=== PATIENT | male | born 1965 | race Caucasian/White ===

== ENCOUNTER 2016-06-13 10:27 | Emergency (ER) | payer OTHER ==
[2016-06-13 11:09] LABS: BILIRUBIN NEGATIVE (NEGATIVE); BLOOD NEGATIVE Ery/uL (NEGATIVE); CLARITY CLEAR (CLEAR); COLOR YELLOW (YELLOW); GLUCOSE (U) NORMAL (NORMAL); KETONE (U) NEGATIVE (NEGATIVE); LEUKOCYTES NEGATIVE Leu/uL (NEGATIVE); NITRITE NEGATIVE (NEGATIVE); PROTEIN NEGATIVE (NEGATIVE); UROBILINOGEN 0.2 mg/dL (0.2-1.0)
== END 2016-06-13 11:55 | disposition home or self-care (01) ==
LOC: FER 10:27
PROVIDERS: Emergency Medicine
DX: M54.5 Low back pain (principal); J44.9 Chronic obstructive pulmonary disease, unspecified; F17.210 Nicotine dependence, cigarettes, uncomplicated; Z79.51 Long term (current) use of inhaled steroids
CPT/HCPCS: 72110; 81003; J1885

== ENCOUNTER 2021-03-13 05:53 | Emergency (ER) | payer OTHER ==
[~2021-03-13] VITALS: Ht 182.9 cm; Wt 79.4 kg
[2021-03-13 06:19] LABS: BASOPHIL 0 % (0-2); EOSINOPHIL 0 % (0-5); HCT 45.1 % (42.0-52.0); HGB 15.2 g/dl (13.2-18.0); LYMPHOCYTE 21.5 % (15-48); MCH 29.9 pg (25.0-31.0); MCHC 33.7 g/dL (32.0-36.0); MCV 88.8 fL (78.0-100.0); MONOCYTE 7.4 % (0-12); NEUTROPHIL 70.9 % (41-80); NRBC 0; PLT 120 K/uL (150-400); RBC 5.08 M/uL (4.70-6.00); RDW 13.2 % (11.5-14.0); WBC 4.2 K/uL (4.0-10.5)
[2021-03-13 06:43] LABS: CREATININE 1.54 mg/dL (0.67-1.17); POTASSIUM 3.5 mmol/L (3.5-5.1)
[2021-03-13] MEDS ORDERED: ONDANSETRON ODT4 MG PO (06:59)
[2021-03-13] MEDS ORDERED: PHENERGAN25 M1 PO (06:59)
== END 2021-03-13 07:49 | disposition home or self-care (01) ==
LOC: FER 05:53
PROVIDERS: Internal Medicine
DX: U07.1 COVID-19 (principal); N17.9 Acute kidney failure, unspecified; J44.9 Chronic obstructive pulmonary disease, unspecified; E78.5 Hyperlipidemia, unspecified; Z79.899 Other long term (current) drug therapy
CPT/HCPCS: 36415; 71045; 80048; 83690; 83880; 84145; 84484; 85025; 93005; 94640; 94664; J1100; J2405; J2550; J7030